=== PATIENT | female | born 1990 | race African-American/Black ===

== ENCOUNTER 2016-11-06 15:03 | Inpatient (IN) | payer OTHER ==
[~2016-11-06] VITALS: Ht 165.1 cm
[~2016-11-06 15:03] MED LIST: CIPROFLOXACN500 MG PO; NO; PRENATABS OR; ZOFRAN ODT4 MG PO; ZOFRAN ODT8 MG SL
[2016-11-08] VITALS (10 sets, daily range): BP systolic 99–125; BP diastolic 44–74
[2016-11-08 01:11] LABS: HEMOGLOBIN 10.4 g/dl (12.0-16.0); IMMATURE GRANULOCYTES 1.2 % (0.0-1.0); MEAN CELL VOLUME 84.2 fL CALC (80.0-100.0); MEAN CORPUSCULAR HGB 27.4 pG CALC (26.0-32.0); MEAN CORPUSCULAR HGB CONC 32.5 g/L CALC (32.0-36.0); NEUT# 6.67 thou/uL (2.00-7.15); RED BLOOD COUNT 3.8 mill/uL (4.20-5.60); RED CELL DISTRI WIDTH 13.5 % (11.5-15.5)
[2016-11-08 01:16] LABS: BARBITURATES NEGATIVE (NEGATIVE); COCAINE NEGATIVE (NEGATIVE); METHADONE NEGATIVE (NEGATIVE); OXCYCODONE NEGATIVE (NEGATIVE); TETRAHYDROCANNABIONOL NEGATIVE (NEGATIVE); TRICYLIC ANTIDEPRESSANTS NEGATIVE (NEGATIVE)
[2016-11-08 16:42] LABS: HEMATOCRIT 26.9 % (37.0-47.0); HEMOGLOBIN 8.8 g/dl (12.0-16.0); IMMATURE GRANULOCYTES 0.5 % (0.0-1.0); MEAN CELL VOLUME 84.1 fL CALC (80.0-100.0); MEAN CORPUSCULAR HGB 27.5 pG CALC (26.0-32.0); MEAN CORPUSCULAR HGB CONC 32.7 g/L CALC (32.0-36.0); NEUT# 6.29 thou/uL (2.00-7.15); RED BLOOD COUNT 3.2 mill/uL (4.20-5.60); RED CELL DISTRI WIDTH 13.2 % (11.5-15.5)
[2016-11-09 00:40] VITALS: BP 112/62
[2016-11-09 03:30] VITALS: BP 102/69
[2016-11-09 07:15] VITALS: BP 112/68
[2016-11-09 16:41] VITALS: BP 106/56
[2016-11-09 19:00] VITALS: BP 103/57
[2016-11-10 04:00] VITALS: BP 97/58
[2016-11-10] MEDS ORDERED: LORTAB 7.57.5 MG PO (09:22)
[2016-11-10] MEDS ORDERED: IBUPROFEN600 MG PO (09:24)
== END 2016-11-10 11:50 | disposition home or self-care (01) | DRG 766 ==
LOC: OB 11-08 00:13
PROVIDERS: ATTEND Obstetrics & Gynecology
PROC: 10D00Z1 Extraction of Products of Conception, Low, Open Approach (ICD-10-PCS; principal; 2016-11-08)
PROC: 0DNW0ZZ Release Peritoneum, Open Approach (ICD-10-PCS; 2016-11-08)
DX: O34.211 Maternal care for low transverse scar from previous cesarean delivery (principal); E66.9 Obesity, unspecified; N85.8 Other specified noninflammatory disorders of uterus; O99.214 Obesity complicating childbirth; O99.89 Other specified diseases and conditions complicating pregnancy, childbirth and the puerperium; N73.6 Female pelvic peritoneal adhesions (postinfective); Z68.39 Body mass index [BMI] 39.0-39.9, adult; Z3A.39 39 weeks gestation of pregnancy; Z37.0 Single live birth
CPT/HCPCS: J2270; J2710